=== PATIENT | male | born 1965 | race Caucasian/White ===

== ENCOUNTER 2025-02-05 00:34 | Inpatient (IN) | payer SELFPAY ==
[~2025-02-05] VITALS: Ht 188 cm; Wt 112.9 kg
[2025-02-05 00:37] VITALS: O2SAT 98
[2025-02-05 01:20] LABS: HEMATOCRIT. 39.6 % (42.0-52.0); HEMOGLOBIN. 13.2 g/dL (14.0-18.0); MEAN PLATELET VOLUME 9.0 fl (7.4-10.4); PLATELET 144 x1000/uL (130-400); RED BLOOD CELL COUNT 3.97 mill/uL (4.7-6.1); RED CELL DISTRIBUTION WIDTH 15.2 % (11.6-14.6)
[2025-02-05 02:07] LABS: CLARITY URINE CLEAR (CLEAR); COLOR URINE YELLOW (YELLOW); GLUCOSE URINE NEGATIVE (NEGATIVE); KETONES URINE NEGATIVE (NEGATIVE); LEUKOCYTE ESTERASE URINE NEGATIVE (NEGATIVE); NITRITE URINE NEGATIVE (NEGATIVE); OCCULT BLOOD URINE NEGATIVE (NEGATIVE); PH URINE 7.5 (4.5-8.0); PROTEIN URINE 2+ (NEGATIVE); SPECIFIC GRAVITY URINE 1.014 (1.005-1.030); UROBILINOGEN URINE 1.0 E.U./dL (0.2-1.0)
[2025-02-05 02:13] LABS: *AMPHETAMINES SCREEN URINE PRESUMPTIVE POSITIVE (NEGATIVE); *BARBITURATES SCREEN URINE NEGATIVE (NEGATIVE); *BENZODIAZEPINES SCREEN URINE PRESUMPTIVE POSITIVE (NEGATIVE); *COCAINE SCREEN URINE NEGATIVE (NEGATIVE); CANNABINOID URINE SCREEN NEGATIVE (NEGATIVE); ECSTASY MDMA SCREEN URINE CONF.TEST INDICATED (NEGATIVE); METHADONE URINE SCREEN NEGATIVE (NEGATIVE); OPIATES URINE SCREEN NEGATIVE (NEGATIVE); PHENCYCLIDINE URINE SCREEN NEGATIVE (NEGATIVE)
[2025-02-05 02:16] LABS: CREATININE 1.1 mg/dL (0.6-1.3); UREA NITROGEN BLOOD 16 mg/dL (9-23)
[2025-02-05 02:17] LABS: ETHANOL BLOOD < 10 mg/dL (<10); PROTEIN TOTAL 7.3 g/dL (6.0-8.3)
[2025-02-05 02:18] LABS: ASPARTATE AMINOTRANSFERASE 143 IU/L (<34); BILIRUBIN DIRECT 1.0 mg/dL (<=3.0); BILIRUBIN TOTAL 2.7 mg/dL (0.1-1.0)
[2025-02-05 02:20] LABS: TROPONIN I HIGH SENSITIVITY 28 ng/L (3.0-53)
[2025-02-05] MEDS: ACETAMINOPHEN 1000MG/100ML 100 ML IV ONE (02:29)
[2025-02-05 03:24] LABS: BACTERIA URINE 1+; SQUAMOUS EPITHELIAL CELL URINE 1+ /lpf (RARE/1+); WBC URINE 0-2 /hpf (0-2)
[2025-02-05 03:25] LABS: BAND% 5.0 % (1.0-6.0); LYMPHOCYTES % MANUAL 6.0 % (20.0-50.0); MONOCYTES % MANUAL 4.0 % (2.0-8.0); NEUTROPHILS % MANUAL 85.0 % (45.0-75.0); PLATELET ESTIMATE NORMAL
[2025-02-05] MEDS: SODIUM CHLORIDE 0.9% 500 ML IV ONE (04:15)
[2025-02-05 05:02] LABS: TROPONIN I HIGH SENSITIVITY 44 ng/L (3.0-53)
[2025-02-05] MEDS: ASPIRIN 325MG EC TABLET PO ONE (06:26)
[2025-02-05 08:00] VITALS: BP 130/81; PULSE 51; RESP 16; TEMP 36.3; O2SAT 98
[2025-02-05 08:07] LABS: INFLUENZA TYPE A Presumptive Negative (Pres. Neg.)
[2025-02-05 08:08] LABS: INFLUENZA TYPE B Presumptive Negative (Pres. Neg.)
[2025-02-05 09:25] VITALS: BP 130/80; PULSE 51; RESP 15; TEMP 36.3624
[2025-02-05] MEDS ORDERED: DOCUSATE SODIUM 100MG CAPSULE PO PRN (10:15)
[2025-02-05] MEDS ORDERED: PANTOPRAZOLE SODIUM 40 MG/VIAL IV SCH (10:15)
[2025-02-05] MEDS ORDERED: CLONIDINE 0.1MG TABLET PO PRN (10:15)
[2025-02-05] MEDS ORDERED: THIAMINE HCL 100MG TABLET PO SCH (10:15)
[2025-02-05] MEDS ORDERED: IPRATROPIUM/ALBUTEROL 0.5-3(2.5)MG/3ML NEB HHN PRN (10:15)
[2025-02-05] MEDS ORDERED: ONDANSETRON HCL 4MG/2ML INJ IV PRN (10:15)
[2025-02-05] MEDS ORDERED: ACETAMINOPHEN 325MG TABLET PO PRN ×2 (10:15)
[2025-02-05] MEDS ORDERED: MVI, ADULT NO.1 10 ML, FOLIC ACID 1 MG, THIAMINE HCL 100 MG in SODIUM CHLORIDE 0.9% 1,0... IV NR (12:00)
[2025-02-06] MEDS ORDERED: FOLIC ACID 1MG TABLET PO SCH (09:00)
== END 2025-02-05 11:10 | disposition left against medical advice (07) | DRG 351 ==
LOC: ER 00:43 → 5WST 06:04 → EDBEDREQ 06:10 → EDBEDREQTM 06:10 → ENRESERV 06:35
PROVIDERS: ADMIT Internal Medicine; ATTEND Internal Medicine
DX: M79.89 Other specified soft tissue disorders (principal); I21.A1 Myocardial infarction type 2; F10.129 Alcohol abuse with intoxication, unspecified; D53.9 Nutritional anemia, unspecified; Z20.822 Contact with and (suspected) exposure to COVID-19; F17.210 Nicotine dependence, cigarettes, uncomplicated; I87.2 Venous insufficiency (chronic) (peripheral); R45.851 Suicidal ideations; Z78.1 Physical restraint status; Z79.899 Other long term (current) drug therapy
CPT/HCPCS: 36415; 71045; 80048; 80076; 80305; 80307; 80320; 80329; 81003; 84484; 85025; 87426; 87804; 93005; 96365; 96366; 99285; A4606; J3411; J3490; J7030; G0480; J0131

== ENCOUNTER 2025-02-05 12:41 | Emergency (ER) | payer SELFPAY ==
[~2025-02-05] VITALS: Ht 190.5 cm; Wt 105.0 kg
[2025-02-05 12:48] VITALS: O2SAT 98
[2025-02-05] MEDS: DIPHENHYDRAMINE 50MG/ML VIAL IM ONE (13:34)
[2025-02-05] MEDS: LORAZEPAM 2MG/ML UD SYRINGE IM NR (13:34)
[2025-02-05] MEDS: HALOPERIDOL LACTATE 5MG/ML VIAL IM ONE (13:34)
[2025-02-05 14:10] LABS: BASOPHILS % 0.3 % (0.0-2.0); EOSINOPHILS % 0.7 % (0.0-5.0); HEMATOCRIT. 41.7 % (42.0-52.0); HEMOGLOBIN. 13.7 g/dL (14.0-18.0); LYMPHOCYTES % 14.2 % (20.0-50.0); MEAN PLATELET VOLUME 9.1 fl (7.4-10.4); MONOCYTES % 13.9 % (2.0-8.0); NEUTROPHILS % 70.9 % (40.0-76.0); PLATELET 167 x1000/uL (130-400); RED BLOOD CELL COUNT 4.05 mill/uL (4.7-6.1); RED CELL DISTRIBUTION WIDTH 15.4 % (11.6-14.6)
[2025-02-05 14:34] LABS: CREATININE 1.3 mg/dL (0.6-1.3); ETHANOL BLOOD < 10 mg/dL (<10); PROTEIN TOTAL 8.1 g/dL (6.0-8.3); TROPONIN I HIGH SENSITIVITY 50 ng/L (3.0-53); UREA NITROGEN BLOOD 19 mg/dL (9-23)
[2025-02-05 14:35] LABS: ASPARTATE AMINOTRANSFERASE 185 IU/L (<34)
[2025-02-05 14:36] LABS: BILIRUBIN DIRECT 1.3 mg/dL (<=3.0)
[2025-02-05 14:41] LABS: BILIRUBIN TOTAL 3.8 mg/dL (0.1-1.0)
[2025-02-05] MEDS: OLANZAPINE 5MG TABLET ODT PO SCH (16:45)
[2025-02-05 22:24] LABS: GLUCOSE URINE NEGATIVE (NEGATIVE); KETONES URINE TRACE (NEGATIVE); LEUKOCYTE ESTERASE URINE 1+ (NEGATIVE); NITRITE URINE POSITIVE (NEGATIVE); OCCULT BLOOD URINE 2+ (NEGATIVE); PH URINE 6.0 (4.5-8.0); PROTEIN URINE 1+ (NEGATIVE); SPECIFIC GRAVITY URINE 1.023 (1.005-1.030); UROBILINOGEN URINE 1.0 E.U./dL (0.2-1.0)
[2025-02-05 22:34] LABS: *AMPHETAMINES SCREEN URINE PRESUMPTIVE POSITIVE (NEGATIVE); *BARBITURATES SCREEN URINE NEGATIVE (NEGATIVE); *BENZODIAZEPINES SCREEN URINE PRESUMPTIVE POSITIVE (NEGATIVE); *COCAINE SCREEN URINE NEGATIVE (NEGATIVE); CANNABINOID URINE SCREEN NEGATIVE (NEGATIVE); CLARITY URINE SL HAZY (CLEAR); COLOR URINE YELLOW (YELLOW); ECSTASY MDMA SCREEN URINE CONF.TEST INDICATED (NEGATIVE); METHADONE URINE SCREEN NEGATIVE (NEGATIVE); OPIATES URINE SCREEN NEGATIVE (NEGATIVE); PHENCYCLIDINE URINE SCREEN NEGATIVE (NEGATIVE)
[2025-02-05 22:37] LABS: BACTERIA URINE TRACE; MUCUS URINE 1+ /lpf (NONE/TRACE); RBC URINE 15-25 /hpf (0-2); SQUAMOUS EPITHELIAL CELL URINE FEW /lpf (RARE/1+)
[2025-02-06] MEDS: POTASSIUM CHLORIDE 20MEQ/PACKET PO ONE ×2 (08:06→11:16)
[2025-02-06] MEDS: CEPHALEXIN 250MG CAPSULE PO ONE (08:06)
[2025-02-06 14:57] VITALS: BP 143/95; PULSE 81; RESP 17; TEMP 36.8; O2SAT 97
== END 2025-02-06 18:34 ==
LOC: ER 12:41
DX: F20.0 Paranoid schizophrenia (principal); F19.10 Other psychoactive substance abuse, uncomplicated; Z20.822 Contact with and (suspected) exposure to COVID-19; Z79.899 Other long term (current) drug therapy
CPT/HCPCS: 80076; 80305; 80048; 81003; 80307; 80329; 80320; 83735; 85025; 84484; 36415; 96372; 99291; 87426; J1200; J1630; J2060; Z7610 ×3; A4606; G0480